=== PATIENT | male | born 1955 | race Caucasian/White ===

== ENCOUNTER 2022-04-09 07:47 | Observation (INO) | payer SELFPAY ==
[2022-04-09] MEDS ORDERED: Boostrix 0.5 ML (Tdap) VIAL (>/=7 yrs of age) ONE (08:33)
[2022-04-09 08:57] LABS: #Eosinphils 0.2 thou/uL (0.0-0.7); #Lymphocytes 0.7 thou/uL (1.20-3.40); #Monocytes 0.9 thou/uL (0.11-0.59); #Neutrophils 7.2 thou/uL (1.40-6.50); %Basophils 0.2 % (0.0-1.0); %Eosinophils 2.7 % (0.0-10.0); %Lymphocytes 7.6 % (21.0-51.0); %Monocytes 9.5 % (0.0-10.0); %Neutrophils 80.1 % (42.0-75.0); Mean Corpuscular HGB CONC 32.9 g/dL (32.0-36.0); Mean Corpuscular Hemoglobin 32.5 pg (27.0-31.0); Mean Corpuscular Volume 98.6 fl (78.0-98.0); Platelet Count 350 10x3/uL (130-400); Red Blood Cell (RBC) Count 4.02 mill/uL (4.70-6.10)
[2022-04-09 08:58] LABS: Prothrombin Time 13.2 sec (12.0-14.7)
[2022-04-09 09:04] LABS: ALT (SGPT) 83 U/L (8-55); AST (SGOT) 136 U/L (5-34); Albumin 3.2 g/dL (3.4-4.8); Alkaline Phosphatase 90 U/L (40-110); Anion Gap 16 mmol/L (10-20); BUN (Urea Nitrogen) 7 mg/dL (8.4-25.7); Calc. Creatinine Clearance 0 mL/min (70-130); Calcium 9.1 mg/dL (7.8-10.44); Carbon Dioxide 23 mmol/L (23-31); Chloride 103 mmol/L (98-107); Estimated GFR 98; Globulin 3.9 g/dL (2.4-3.5); Glucose 100 mg/dL (80-115); Potassium 3.6 mmol/L (3.5-5.1); Protein, Total 7.1 g/dL (5.8-8.1); Sodium 138 mmol/L (136-145)
[2022-04-09] MEDS ORDERED: Ampicillin/Sulbactam 3 GM in Sodium Chloride 0.9% 100 ML IVPB SCH (09:15)
[2022-04-09 09:21] LABS: SARS-CoV-2 NAA Rapid Test Not Detected (NotDetected)
[2022-04-09] MEDS ORDERED: VANCOMYCIN 1.25 GM/250 ML BAG 1.25 GM in Premix Bag 1 BAG IVPB SCH (11:30)
[2022-04-09] MEDS ORDERED: Iopamidol-370 76% 500 ML 1 ML ONE (12:48)
[2022-04-09] MEDS ORDERED: Acetaminophen 325 MG TAB PO PRN (13:45)
[2022-04-09] MEDS ORDERED: Lorazepam 2 MG/ML VIAL IM PRN (13:48)
[2022-04-09] MEDS ORDERED: Lorazepam 1 MG TAB PO PRN (13:48)
[2022-04-09] MEDS ORDERED: Ondansetron ODT 4 MG TAB PO PRN (13:48)
[2022-04-09] MEDS ORDERED: Electrolyte Replacement Protocol 1 EACH FS SCH (14:00)
[2022-04-09] MEDS ORDERED: Multivit, Therapeutic 1 TAB PO SCH (14:15)
[2022-04-09] MEDS ORDERED: Folic Acid 1 MG TAB PO SCH (14:15)
[2022-04-09 14:17] VITALS: BMI 20.3
[2022-04-09 14:22] LABS: Phosphorus 2.2 mg/dL (2.3-4.7)
[2022-04-09] MEDS ORDERED: Naproxen 500 MG TAB PO PRN (14:28)
[2022-04-09] MEDS ORDERED: FLU VACC QS2022-23(65YR UP)/PF 240 MCG/0.7 ML SYRINGE IM ONE (14:45)
[2022-04-09] MEDS: Lorazepam 1 MG TAB PO SCH ×2 (15:48→20:44)
[2022-04-09] MEDS: Thiamine HCl 200 MG/2 ML VIAL SLOW IVP SCH (15:48)
[2022-04-09 17:01] LABS: Amphetamine Not Detected (NotDetected); Barbiturates Screen Not Detected (NotDetected); Benzodiazepine Screen Not Detected (NotDetected); Cocaine Metabolite Screen Not Detected (NotDetected); Methadone Not Detected (NotDetected); Methamphetamine Not Detected (NotDetected); Opiate Screen Not Detected (NotDetected); Oxycodone Screen Not Detected (NotDetected); Phencyclidine (PCP) Not Detected (NotDetected); THC/Cannabinoid Screen Not Detected (NotDetected); Tricyclic Screen Not Detected (NotDetected)
[2022-04-09] MEDS ORDERED: traMADol HCl 50 MG TAB PO PRN (22:40)
[2022-04-09] MEDS: Vancomycin HCl 750 MG in Sodium Chloride 0.9% 250 ML 250 ML IVPB SCH (22:49)
[2022-04-10] MEDS: Lorazepam 1 MG TAB PO SCH ×4 (03:33→21:00)
[2022-04-10 08:25] LABS: #Eosinphils 0.3 thou/uL (0.0-0.7); #Lymphocytes 0.9 thou/uL (1.20-3.40); #Monocytes 0.8 thou/uL (0.11-0.59); #Neutrophils 7.9 thou/uL (1.40-6.50); %Basophils 0.2 % (0.0-1.0); %Eosinophils 2.8 % (0.0-10.0); %Lymphocytes 8.6 % (21.0-51.0); %Monocytes 8.3 % (0.0-10.0); %Neutrophils 80.1 % (42.0-75.0); Hemoglobin 12.5 g/dL (14.0-18.0); Mean Corpuscular HGB CONC 32.6 g/dL (32.0-36.0); Mean Platelet Volume 6.5 fL (7.4-10.4); Platelet Count 279 10x3/uL (130-400); RBC Distribution Width 11.1 % (11.5-14.5); White Blood Cell (WBC) Count 9.8 10x3/uL (4.8-10.8)
[2022-04-10 08:52] LABS: ALT (SGPT) 62 U/L (8-55); AST (SGOT) 47 U/L (5-34); Alkaline Phosphatase 78 U/L (40-110); Anion Gap 11 mmol/L (10-20); BUN (Urea Nitrogen) 10 mg/dL (8.4-25.7); Calc. Creatinine Clearance 81 mL/min (70-130); Calcium 8.4 mg/dL (7.8-10.44); Carbon Dioxide 22 mmol/L (23-31); Chloride 103 mmol/L (98-107); Estimated GFR 100; Globulin 3.5 g/dL (2.4-3.5); Glucose 78 mg/dL (80-115); Magnesium 2.1 mg/dL (1.6-2.6); Phosphorus 2.3 mg/dL (2.3-4.7); Potassium 3.4 mmol/L (3.5-5.1); Protein, Total 6.5 g/dL (5.8-8.1); Sodium 133 mmol/L (136-145)
[2022-04-10] MEDS: Folic Acid 1 MG TAB PO SCH (08:57)
[2022-04-10] MEDS: Multivit, Therapeutic 1 TAB PO SCH (08:58)
[2022-04-10] MEDS: Vancomycin HCl 750 MG in Sodium Chloride 0.9% 250 ML 250 ML IVPB SCH (09:36)
[2022-04-10] MEDS ORDERED: Lisinopril 10 MG TAB PO SCH (10:00)
[2022-04-10] MEDS ORDERED: Naproxen 500 MG TAB PO SCH (10:30)
[2022-04-10] MEDS ORDERED: Potassium Chloride 20 MEQ TAB PO SCH (11:30)
[2022-04-10 11:45] LABS: Syphilis Antibody Nonreactive (Nonreactive); Syphilis Antibody Index 0.24 S/CO (<1.00 Non-Reactive)
[2022-04-10] MEDS: traMADol HCl 50 MG TAB PO PRN ×2 (13:17→18:08)
[2022-04-10] MEDS: cefTRIAXone\\ROCEPHIN 2 GM in Sodium Chloride 0.9% 100 ML IVPB SCH (13:17)
[2022-04-10] MEDS ORDERED: Lorazepam 1 MG TAB PO PRN (13:48)
[2022-04-10] MEDS: Thiamine HCl 200 MG/2 ML VIAL SLOW IVP SCH (15:07)
[2022-04-10] MEDS ORDERED: Nicotine 21 MG PATCH TOP SCH (21:00)
[2022-04-10 21:40] LABS: Vancomycin, Trough 11.3 ug/mL
[2022-04-10] MEDS: Vancomycin 1 GM in Premix Bag 1 BAG IVPB SCH (22:53)
[2022-04-11] MEDS: Lorazepam 1 MG TAB PO SCH ×2 (01:17→09:59)
[2022-04-11] MEDS: traMADol HCl 50 MG TAB PO PRN ×2 (05:20→13:03)
[2022-04-11 06:58] LABS: #Eosinphils 0.3 thou/uL (0.0-0.7); #Lymphocytes 0.7 thou/uL (1.20-3.40); #Monocytes 0.5 thou/uL (0.11-0.59); #Neutrophils 5.3 thou/uL (1.40-6.50); %Basophils 0.2 % (0.0-1.0); %Eosinophils 3.9 % (0.0-10.0); %Lymphocytes 9.9 % (21.0-51.0); Hemoglobin 11.5 g/dL (14.0-18.0); Mean Corpuscular Hemoglobin 32.7 pg (27.0-31.0); Mean Corpuscular Volume 99.2 fl (78.0-98.0); Mean Platelet Volume 6.1 fL (7.4-10.4); Platelet Count 280 10x3/uL (130-400); Red Blood Cell (RBC) Count 3.51 mill/uL (4.70-6.10); White Blood Cell (WBC) Count 6.8 10x3/uL (4.8-10.8)
[2022-04-11 07:10] LABS: ALT (SGPT) 72 U/L (8-55); AST (SGOT) 65 U/L (5-34); Albumin 2.7 g/dL (3.4-4.8); Alkaline Phosphatase 67 U/L (40-110); Anion Gap 11 mmol/L (10-20); BUN (Urea Nitrogen) 8 mg/dL (8.4-25.7); Bilirubin, Total 0.5 mg/dL (0.2-1.2); Calc. Creatinine Clearance 98 mL/min (70-130); Calcium 8.4 mg/dL (7.8-10.44); Carbon Dioxide 24 mmol/L (23-31); Chloride 98 mmol/L (98-107); Estimated GFR 105; Globulin 3.2 g/dL (2.4-3.5); Glucose 105 mg/dL (80-115); Potassium 3.8 mmol/L (3.5-5.1); Protein, Total 5.9 g/dL (5.8-8.1); Sodium 129 mmol/L (136-145)
[2022-04-11 08:02] VITALS: TEMP 97.4
[2022-04-11] MEDS ORDERED: Lisinopril 10 MG TAB PO SCH (09:00)
[2022-04-11] MEDS: Folic Acid 1 MG TAB PO SCH (10:03)
[2022-04-11] MEDS: Vancomycin 1 GM in Premix Bag 1 BAG IVPB SCH (10:03)
[2022-04-11] MEDS: Multivit, Therapeutic 1 TAB PO SCH (10:03)
[2022-04-11] MEDS: cefTRIAXone\\ROCEPHIN 2 GM in Sodium Chloride 0.9% 100 ML IVPB SCH (13:03)
[2022-04-11] MEDS ORDERED: Lorazepam 1 MG TAB PO PRN (13:48)
[2022-04-11] MEDS ORDERED: Lorazepam 0.5 MG TAB PO SCH (14:00)
[2022-04-11] MEDS: Thiamine HCl 200 MG/2 ML VIAL SLOW IVP SCH (14:47)
[2022-04-11 19:17] VITALS: BP 126/76
[2022-04-12] MEDS ORDERED: Lorazepam 0.5 MG TAB PO PRN (13:48)
[2022-04-12] MEDS ORDERED: Thiamine 100 MG TAB PO SCH (14:00)
== END 2022-04-11 19:12 | disposition home or self-care (01) ==
LOC: ERS 07:47 → T4-B 11:53
PROVIDERS: ADMIT Student in an Organized Health Care Education/Training Program; ATTEND Student in an Organized Health Care Education/Training Program
DX: M27.8 Other specified diseases of jaws (principal); E87.1 Hypo-osmolality and hyponatremia; F17.220 Nicotine dependence, chewing tobacco, uncomplicated; F10.10 Alcohol abuse, uncomplicated; D17.1 Benign lipomatous neoplasm of skin and subcutaneous tissue of trunk; Z51.5 Encounter for palliative care; Z20.822 Contact with and (suspected) exposure to COVID-19
CPT/HCPCS: 36415; 70491; 80053; 80202; 80306; 83735; 83930; 83935; 84100; 84300; 85025; 85610; 85652; 85730; 86140; 86780; 86850; 86900; 86901; 87070; 87077; 87186; 87205; 90471; 90715; 93005; 96365; 96372; 96375; 96376; 97139; G0378; J0295; J0696; J1650; J3370; J3370-JW; J3411; J3490; J7050; Q9967; U0002

== ENCOUNTER 2022-04-22 07:25 | Outpatient (CLI) | payer OTHER ==
[2022-04-22] MEDS ORDERED: Iopamidol 370 76% 100 ML VIAL ONE (14:47)
== END 2022-04-22 07:26 | disposition home or self-care (01) ==
LOC: CT 07:25
PROVIDERS: ATTEND Physician Assistant Surgical
DX: C41.1 Malignant neoplasm of mandible (principal); C03.9 Malignant neoplasm of gum, unspecified; K40.20 Bilateral inguinal hernia, without obstruction or gangrene, not specified as recurrent
CPT/HCPCS: 71260; 75635; Q9967

== ENCOUNTER 2022-06-21 08:31 | Outpatient (CLI) | payer MEDICARE, OTHER ==
[2022-06-21] MEDS ORDERED: Iopamidol 370 76% 100 ML VIAL ONE (10:05)
== END 2022-06-21 08:32 | disposition home or self-care (01) ==
LOC: CT 08:31
PROVIDERS: ATTEND Radiology Radiation Oncology
DX: C41.1 Malignant neoplasm of mandible (principal); Z98.890 Other specified postprocedural states
CPT/HCPCS: 70491; 71260; Q9967

== ENCOUNTER 2022-09-17 13:38 | Emergency (ER) | payer MEDICARE ==
[~2022-09-17 13:38] MED LIST: Iopamidol-370 76% 500 ML MDV (1 ML CHARGE) ONE
[2022-09-17 14:27] LABS: Hematocrit 22.4 % (42.0-52.0); Hemoglobin 7.3 g/dL (14.0-18.0); Manual Diff?? YES; Mean Corpuscular HGB CONC 32.6 g/dL (32.0-36.0); Mean Corpuscular Hemoglobin 30.7 pg (27.0-31.0); Mean Corpuscular Volume 94.1 fl (78.0-98.0); Mean Platelet Volume 9.1 fL (7.4-10.4); Platelet Count 175 10x3/uL (130-400); RBC Distribution Width 18.4 % (11.5-14.5); Red Blood Cell (RBC) Count 2.38 mill/uL (4.70-6.10); White Blood Cell (WBC) Count 5.6 10x3/uL (4.8-10.8)
[2022-09-17 14:28] LABS: Delete Auto Diff?? YES
[2022-09-17] MEDS ORDERED: diphenhydrAMINE 50 MG/ML VIAL ONE (14:50)
[2022-09-17] MEDS ORDERED: methylPREDNISolone Sod Succ/PF 125 MG/2 ML VIAL ONE (14:50)
[2022-09-17] MEDS ORDERED: Famotidine/PF 20 mg/2ml Vial ONE (14:50)
[2022-09-17 14:52] LABS: ALT (SGPT) 15 U/L (8-55); AST (SGOT) 16 U/L (5-34); Albumin 3.7 g/dL (3.4-4.8); Alkaline Phosphatase 97 U/L (40-110); Anion Gap 13 mmol/L (10-20); BUN (Urea Nitrogen) 20 mg/dL (8.4-25.7); Bilirubin, Total 0.2 mg/dL (0.2-1.2); Calc. Creatinine Clearance 0 mL/min (70-130); Carbon Dioxide 31 mmol/L (23-31); Chloride 89 mmol/L (98-107); Estimated GFR 97; Globulin 3.4 g/dL (2.4-3.5); Glucose 102 mg/dL (80-115); Potassium 4.6 mmol/L (3.5-5.1); Protein, Total 7.1 g/dL (5.8-8.1); Sodium 128 mmol/L (136-145)
[2022-09-17 14:54] LABS: Anisocytosis SLIGHT = 6-15 cells HPF (0-5); Band 6 % (5-11); CellaVision Operator ID LAB.MJL; Eosinophils 1 % (0-10); Large Platelets 1.7 % (0-5); Lymphocytes 2 % (21-51); Monocytes 11 % (0-10); Neutrophil 80 % (42-75); Platelet Adequacy Comment Platelets Normal; Polychromasia SLIGHT = 2-3 cells HPF (0-2); Total Cell Count 117
[2022-09-17] MEDS ORDERED: Vancomycin 1 GM/200 ML (FROZEN) BAG ONE (16:30)
[2022-09-17] MEDS ORDERED: Piperacillin/Tazobactam 3.375 GM VIAL ONE (16:30)
== END 2022-09-17 17:14 | disposition home or self-care (01) ==
LOC: ERS 13:38
DX: L03.211 Cellulitis of face (principal); R13.10 Dysphagia, unspecified; E87.1 Hypo-osmolality and hyponatremia; Z87.891 Personal history of nicotine dependence
CPT/HCPCS: 36415; 70491; 80053; 83605; 85025; 85652; 86140; 87040; 96365; 96375; J1200; J2543; J2930; J3370-JW; Q9967; S0028

== ENCOUNTER 2022-09-22 13:41 | Outpatient (CLI) | payer MEDICARE | END 2022-09-22 13:42 | disposition home or self-care (01) | LOC: CT 13:41 | PROVIDERS: ATTEND Physician Assistant Surgical | DX: C03.1 Malignant neoplasm of lower gum (principal); R91.1 Solitary pulmonary nodule; L90.5 Scar conditions and fibrosis of skin | CPT/HCPCS: 71260 ==

== ENCOUNTER 2022-09-27 08:45 | Outpatient (CLI) | payer MEDICARE | END 2022-09-27 08:46 | disposition home or self-care (01) | LOC: PET 08:45 | PROVIDERS: ATTEND Physician Assistant Surgical | DX: C03.1 Malignant neoplasm of lower gum (principal); R91.1 Solitary pulmonary nodule | CPT/HCPCS: 78815; A9552 ==

== ENCOUNTER 2022-12-06 08:11 | Outpatient (CLI) | payer MEDICARE | END 2022-12-06 08:12 | disposition home or self-care (01) | LOC: CT 08:11 | PROVIDERS: ATTEND Otolaryngology | DX: C41.1 Malignant neoplasm of mandible (principal); Z92.3 Personal history of irradiation; Z85.819 Personal history of malignant neoplasm of unspecified site of lip, oral cavity, and pharynx; M95.2 Other acquired deformity of head; R93.0 Abnormal findings on diagnostic imaging of skull and head, not elsewhere classified | CPT/HCPCS: 70486; 74230 ==

== ENCOUNTER 2023-01-03 08:33 | Outpatient (CLI) | payer MEDICARE ==
[2023-01-03] MEDS ORDERED: Iopamidol 370 76% 100 ML VIAL ONE (13:46)
== END 2023-01-03 08:34 | disposition home or self-care (01) ==
LOC: CT 08:33
PROVIDERS: ATTEND Internal Medicine
DX: C80.1 Malignant (primary) neoplasm, unspecified (principal); R91.8 Other nonspecific abnormal finding of lung field; K76.9 Liver disease, unspecified; K40.20 Bilateral inguinal hernia, without obstruction or gangrene, not specified as recurrent; N32.89 Other specified disorders of bladder
CPT/HCPCS: 74177; Q9967

== ENCOUNTER 2023-01-30 16:18 | Inpatient (IN) | payer MEDICARE ==
[~2023-01-30 16:18] MED LIST changes: +Iopamidol 370 76% 100 ML VIAL ONE; -Iopamidol-370 76% 500 ML MDV (1 ML CHARGE) ONE
[2023-01-30 18:07] LABS: #Monocytes 1.4 thou/uL (0.11-0.59); #Neutrophils 9.2 thou/uL (1.40-6.50); %Basophils 0.1 % (0.0-1.0); %Eosinophils 0.1 % (0.0-10.0); %Lymphocytes 5.4 % (21.0-51.0); %Monocytes 12.6 % (0.0-10.0); %Neutrophils 80.7 % (42.0-75.0); Hematocrit 22.4 % (42.0-52.0); Hemoglobin 7.2 g/dL (14.0-18.0); Mean Corpuscular HGB CONC 32.1 g/dL (32.0-36.0); Mean Corpuscular Hemoglobin 28.9 pg (27.0-31.0); RBC Distribution Width 13.4 % (11.5-14.5); Red Blood Cell (RBC) Count 2.49 mill/uL (4.70-6.10); White Blood Cell (WBC) Count 11.4 10x3/uL (4.8-10.8)
[2023-01-30 18:11] LABS: Platelet Count 86 10x3/uL (130-400)
[2023-01-30 18:28] LABS: ALT (SGPT) 39 U/L (8-55); AST (SGOT) 30 U/L (5-34); Albumin 3.3 g/dL (3.4-4.8); Alkaline Phosphatase 118 U/L (40-110); Anion Gap 14 mmol/L (10-20); BUN (Urea Nitrogen) 16 mg/dL (8.4-25.7); Bilirubin, Total 0.4 mg/dL (0.2-1.2); Calc. Creatinine Clearance 0 mL/min (70-130); Calcium 9.6 mg/dL (7.8-10.44); Carbon Dioxide 27 mmol/L (23-31); Chloride 91 mmol/L (98-107); Estimated GFR 98; Globulin 3.9 g/dL (2.4-3.5); Glucose 107 mg/dL (80-115); Protein, Total 7.2 g/dL (5.8-8.1); Sodium 128 mmol/L (136-145)
[2023-01-30 18:33] LABS: Troponin I Less than 0.010 ng/mL (< 0.028)
[2023-01-30] MEDS ORDERED: Sodium Chloride 0.9% 100 ML ONE (21:06)
[2023-01-30] MEDS ORDERED: Cefepime 2 GM VIAL ONE (21:06)
[2023-01-30] MEDS ORDERED: Vancomycin HCl 750 MG in Sodium Chloride 0.9% 250 ML 250 ML IVPB SCH (21:45)
[2023-01-30] MEDS ORDERED: Clindamycin/D5W 900 MG in Premix 1 BAG IVPB SCH (21:45)
[2023-01-30] MEDS ORDERED: Ondansetron ODT 4 MG TAB PO PRN (22:59)
[2023-01-30] MEDS ORDERED: Acetaminophen 325 MG TAB PO PRN (22:59)
[2023-01-30] MEDS ORDERED: Acetaminophen 650 MG Suppository PR PRN (22:59)
[2023-01-30] MEDS ORDERED: Ondansetron PF 4 MG/2 ML Vial IVP PRN (22:59)
[2023-01-30] MEDS ORDERED: Sodium Chloride 0.9% 1,000 ML IV SCH (23:00)
[2023-01-30] MEDS ORDERED: Scopolamine 1 mg/72 hour Patch TD PRN (23:59)
[2023-01-31] MEDS: Dextrose 5%-Lactated Ringers 1,000 ML IV SCH ×2 (00:26→09:43)
[2023-01-31 00:38] VITALS: BMI 19.3
[2023-01-31 05:01] LABS: #Monocytes 1.4 thou/uL (0.11-0.59); #Neutrophils 9.2 thou/uL (1.40-6.50); %Basophils 0.2 % (0.0-1.0); %Lymphocytes 5.8 % (21.0-51.0); %Monocytes 12.2 % (0.0-10.0); %Neutrophils 80.6 % (42.0-75.0); Hematocrit 23.6 % (42.0-52.0); Hemoglobin 7.4 g/dL (14.0-18.0); Mean Corpuscular HGB CONC 31.4 g/dL (32.0-36.0); Mean Corpuscular Volume 92.5 fl (78.0-98.0); Mean Platelet Volume 9.9 fL (7.4-10.4); RBC Distribution Width 13.8 % (11.5-14.5); Red Blood Cell (RBC) Count 2.55 mill/uL (4.70-6.10); White Blood Cell (WBC) Count 11.4 10x3/uL (4.8-10.8)
[2023-01-31] MEDS: Clindamycin/D5W 900 MG in Premix 1 BAG IVPB SCH ×3 (05:16→22:14)
[2023-01-31 05:34] LABS: Anion Gap 11 mmol/L (10-20); BUN (Urea Nitrogen) 10 mg/dL (8.4-25.7); Calc. Creatinine Clearance 75 mL/min (70-130); Calcium 8.9 mg/dL (7.8-10.44); Carbon Dioxide 23 mmol/L (23-31); Chloride 97 mmol/L (98-107); Estimated GFR 99; Glucose 122 mg/dL (80-115); Potassium 3.9 mmol/L (3.5-5.1); Sodium 127 mmol/L (136-145)
[2023-01-31 06:10] LABS: Platelet Count 90 10x3/uL (130-400)
[2023-01-31] MEDS ORDERED: Vancomycin (BATCH) 1.5 GM in Premix 1 BAG IVPB SCH (09:00)
[2023-01-31] MEDS ORDERED: Cefepime 2 GM in Sodium Chloride 0.9% 100 ML IVPB SCH (09:00)
[2023-01-31] MEDS: Vancomycin HCl 750 MG in Sodium Chloride 0.9% 250 ML 250 ML IVPB SCH ×2 (09:42→22:13)
[2023-01-31] MEDS: Famotidine 20 MG TAB PO SCH ×2 (09:43→22:18)
[2023-01-31] MEDS: Famotidine/PF 20 mg/2ml Vial SLOW IVP SCH ×2 (09:43→22:12)
[2023-01-31] MEDS: Acetaminophen 650 MG/20.3 ML UDCUP PO PRN (10:49)
[2023-02-01] MEDS ORDERED: Piperacillin/Tazobactam 3.375 GM in Sodium Chloride 0.9% 100 ML IVPB SCH ×2 (01:00→01:15)
[2023-02-01] MEDS: Piperacillin/Tazobactam 3.375 GM in Sodium Chloride 0.9% 100 ML IVPB SCH ×3 (06:16→22:43)
[2023-02-01] MEDS ORDERED: Vancomycin HCl 750 MG in Sodium Chloride 0.9% 250 ML 250 ML IVPB SCH (07:45)
[2023-02-01] MEDS: Famotidine 20 MG TAB PO SCH ×3 (08:45→20:42)
[2023-02-01 08:50] LABS: Vancomycin, Trough 13.1 ug/mL
[2023-02-01] MEDS: Famotidine/PF 20 mg/2ml Vial SLOW IVP SCH ×2 (10:25→20:40)
[2023-02-01] MEDS: Vancomycin HCl 750 MG in Sodium Chloride 0.9% 250 ML 250 ML IVPB SCH ×2 (10:26→21:10)
[2023-02-01] MEDS ORDERED: Morphine 4 MG/ML VIAL SLOW IVP PRN (12:25)
[2023-02-01] MEDS ORDERED: HYDROcodone/Acetaminophen 5/325 mg Tablet PO PRN (12:25)
[2023-02-01] MEDS: Acetaminophen 650 MG/20.3 ML UDCUP PO PRN (16:53)
[2023-02-02] MEDS: Acetaminophen 650 MG/20.3 ML UDCUP PO PRN ×2 (02:26→17:06)
[2023-02-02 05:15] LABS: Anion Gap 11 mmol/L (10-20); BUN (Urea Nitrogen) 11 mg/dL (8.4-25.7); Calc. Creatinine Clearance 72 mL/min (70-130); Calcium 8.4 mg/dL (7.8-10.44); Carbon Dioxide 25 mmol/L (23-31); Chloride 97 mmol/L (98-107); Estimated GFR 98; Glucose 108 mg/dL (80-115); Potassium 3.7 mmol/L (3.5-5.1); Sodium 129 mmol/L (136-145)
[2023-02-02] MEDS: Piperacillin/Tazobactam 3.375 GM in Sodium Chloride 0.9% 100 ML IVPB SCH ×3 (05:26→18:37)
[2023-02-02 05:52] LABS: #Monocytes 1.3 thou/uL (0.11-0.59); #Neutrophils 8.5 thou/uL (1.40-6.50); %Basophils 0.1 % (0.0-1.0); %Eosinophils 0.3 % (0.0-10.0); %Lymphocytes 4.8 % (21.0-51.0); %Monocytes 12.4 % (0.0-10.0); %Neutrophils 81.3 % (42.0-75.0); Hematocrit 18.5 % (42.0-52.0); Mean Corpuscular HGB CONC 32.4 g/dL (32.0-36.0); Mean Corpuscular Hemoglobin 29.3 pg (27.0-31.0); Mean Corpuscular Volume 90.2 fl (78.0-98.0); Mean Platelet Volume 9.8 fL (7.4-10.4); Platelet Count 126 10x3/uL (130-400); RBC Distribution Width 13.9 % (11.5-14.5); Red Blood Cell (RBC) Count 2.05 mill/uL (4.70-6.10); White Blood Cell (WBC) Count 10.5 10x3/uL (4.8-10.8)
[2023-02-02] MEDS: Famotidine/PF 20 mg/2ml Vial SLOW IVP SCH ×2 (09:08→21:09)
[2023-02-02] MEDS ORDERED: hydrOXYzine 25 MG TAB PO PRN (09:18)
[2023-02-02] MEDS: Vancomycin HCl 750 MG in Sodium Chloride 0.9% 250 ML 250 ML IVPB SCH ×2 (09:23→22:50)
[2023-02-02] MEDS: Famotidine 20 MG TAB PO SCH ×2 (09:24→22:14)
[2023-02-02] MEDS ORDERED: diphenhydrAMINE 25 MG CAP PO SCH (18:00)
[2023-02-02] MEDS: diphenhydrAMINE 50 MG/ML VIAL IVP PRN (21:09)
[2023-02-02 23:04] LABS: Vancomycin, Trough 11.4 ug/mL
[2023-02-02] MEDS ORDERED: FLU VACC QS2023(65UP)/MF59C/PF 60 MCG/0.5 ML SYRINGE IM ONE (23:45)
[2023-02-03] MEDS: Acetaminophen 650 MG/20.3 ML UDCUP PO PRN ×3 (00:42→20:37)
[2023-02-03] MEDS: Piperacillin/Tazobactam 3.375 GM in Sodium Chloride 0.9% 100 ML IVPB SCH ×3 (01:57→18:00)
[2023-02-03 05:57] LABS: #Eosinphils 0.1 thou/uL (0.0-0.7); #Monocytes 1.5 thou/uL (0.11-0.59); #Neutrophils 8.6 thou/uL (1.40-6.50); %Basophils 0.3 % (0.0-1.0); %Eosinophils 0.5 % (0.0-10.0); %Lymphocytes 6.4 % (21.0-51.0); %Monocytes 13.9 % (0.0-10.0); %Neutrophils 77.9 % (42.0-75.0); Hematocrit 26.5 % (42.0-52.0); Hemoglobin 8.9 g/dL (14.0-18.0); Mean Corpuscular HGB CONC 33.6 g/dL (32.0-36.0); Mean Corpuscular Hemoglobin 29.7 pg (27.0-31.0); Mean Corpuscular Volume 88.3 fl (78.0-98.0); Mean Platelet Volume 9.9 fL (7.4-10.4); Platelet Count 138 10x3/uL (130-400); RBC Distribution Width 14.3 % (11.5-14.5); White Blood Cell (WBC) Count 11.1 10x3/uL (4.8-10.8)
[2023-02-03 06:27] LABS: Anion Gap 12 mmol/L (10-20); BUN (Urea Nitrogen) 13 mg/dL (8.4-25.7); CRP (Inflammatory) 12.63 mg/dL (= or < 0.5); Calc. Creatinine Clearance 77 mL/min (70-130); Calcium 8.7 mg/dL (7.8-10.44); Carbon Dioxide 25 mmol/L (23-31); Chloride 96 mmol/L (98-107); Estimated GFR 100; Glucose 104 mg/dL (80-115); Potassium 3.8 mmol/L (3.5-5.1); Sodium 129 mmol/L (136-145)
[2023-02-03] MEDS: Vancomycin HCl 750 MG in Sodium Chloride 0.9% 250 ML 250 ML IVPB SCH (09:27)
[2023-02-03] MEDS: Famotidine/PF 20 mg/2ml Vial SLOW IVP SCH ×2 (09:27→20:38)
[2023-02-03] MEDS: Famotidine 20 MG TAB PO SCH (09:30)
[2023-02-04] MEDS: Piperacillin/Tazobactam 3.375 GM in Sodium Chloride 0.9% 100 ML IVPB SCH ×3 (02:19→18:06)
[2023-02-04] MEDS: Acetaminophen 650 MG/20.3 ML UDCUP PO PRN ×2 (09:50→19:21)
[2023-02-04] MEDS: Famotidine/PF 20 mg/2ml Vial SLOW IVP SCH ×2 (09:56→20:59)
[2023-02-04 10:19] LABS: #Eosinphils 0.1 thou/uL (0.0-0.7); #Monocytes 1.4 thou/uL (0.11-0.59); #Neutrophils 8.5 thou/uL (1.40-6.50); %Basophils 0.2 % (0.0-1.0); %Eosinophils 0.5 % (0.0-10.0); %Lymphocytes 5.3 % (21.0-51.0); Hematocrit 26.7 % (42.0-52.0); Mean Corpuscular HGB CONC 33.7 g/dL (32.0-36.0); Mean Platelet Volume 9.8 fL (7.4-10.4); Platelet Count 180 10x3/uL (130-400); RBC Distribution Width 14.2 % (11.5-14.5); White Blood Cell (WBC) Count 10.6 10x3/uL (4.8-10.8)
[2023-02-04 10:39] LABS: Anion Gap 12 mmol/L (10-20); BUN (Urea Nitrogen) 10 mg/dL (8.4-25.7); Calc. Creatinine Clearance 77 mL/min (70-130); Carbon Dioxide 26 mmol/L (23-31); Chloride 94 mmol/L (98-107); Estimated GFR 100; Glucose 103 mg/dL (80-115); Sodium 128 mmol/L (136-145)
[2023-02-04] MEDS: Famotidine 20 MG TAB PO SCH ×2 (18:36→21:00)
[2023-02-05] MEDS: Piperacillin/Tazobactam 3.375 GM in Sodium Chloride 0.9% 100 ML IVPB SCH ×3 (02:19→18:13)
[2023-02-05 04:36] LABS: #Monocytes 1.3 thou/uL (0.11-0.59); #Neutrophils 6.9 thou/uL (1.40-6.50); %Basophils 0.1 % (0.0-1.0); %Eosinophils 0.4 % (0.0-10.0); %Lymphocytes 6.5 % (21.0-51.0); %Monocytes 14.6 % (0.0-10.0); %Neutrophils 77.5 % (42.0-75.0); Hematocrit 27.7 % (42.0-52.0); Hemoglobin 9.2 g/dL (14.0-18.0); Mean Corpuscular HGB CONC 33.2 g/dL (32.0-36.0); Mean Corpuscular Hemoglobin 30.1 pg (27.0-31.0); Mean Corpuscular Volume 90.5 fl (78.0-98.0); Mean Platelet Volume 9.8 fL (7.4-10.4); Platelet Count 208 10x3/uL (130-400); RBC Distribution Width 14.5 % (11.5-14.5); Red Blood Cell (RBC) Count 3.06 mill/uL (4.70-6.10); White Blood Cell (WBC) Count 8.9 10x3/uL (4.8-10.8)
[2023-02-05 05:17] LABS: Anion Gap 11 mmol/L (10-20); BUN (Urea Nitrogen) 11 mg/dL (8.4-25.7); Calc. Creatinine Clearance 71 mL/min (70-130); Calcium 9.2 mg/dL (7.8-10.44); Carbon Dioxide 27 mmol/L (23-31); Chloride 95 mmol/L (98-107); Estimated GFR 98; Glucose 128 mg/dL (80-115); Potassium 4.1 mmol/L (3.5-5.1); Sodium 129 mmol/L (136-145)
[2023-02-05] MEDS: diphenhydrAMINE 50 MG/ML VIAL IVP PRN (09:16)
[2023-02-05] MEDS: Famotidine/PF 20 mg/2ml Vial SLOW IVP SCH ×2 (09:16→20:46)
[2023-02-05] MEDS: Famotidine 20 MG TAB PO SCH ×2 (09:48→20:46)
[2023-02-05] MEDS: Acetaminophen 650 MG/20.3 ML UDCUP PO PRN ×2 (10:53→19:20)
[2023-02-06] MEDS: Piperacillin/Tazobactam 3.375 GM in Sodium Chloride 0.9% 100 ML IVPB SCH ×3 (02:27→17:55)
[2023-02-06] MEDS: Acetaminophen 650 MG/20.3 ML UDCUP PO PRN (09:18)
[2023-02-06] MEDS: Famotidine/PF 20 mg/2ml Vial SLOW IVP SCH ×2 (09:19→21:52)
[2023-02-06] MEDS: Famotidine 20 MG TAB PO SCH ×2 (15:41→21:52)
[2023-02-07] MEDS: Piperacillin/Tazobactam 3.375 GM in Sodium Chloride 0.9% 100 ML IVPB SCH ×3 (00:57→17:56)
[2023-02-07] MEDS: Famotidine/PF 20 mg/2ml Vial SLOW IVP SCH ×2 (10:28→20:48)
[2023-02-07] MEDS: Acetaminophen 650 MG/20.3 ML UDCUP PO PRN ×2 (10:29→20:53)
[2023-02-07] MEDS: Famotidine 20 MG TAB PO SCH ×2 (19:44→21:30)
[2023-02-08] MEDS: Piperacillin/Tazobactam 3.375 GM in Sodium Chloride 0.9% 100 ML IVPB SCH ×3 (01:50→17:31)
[2023-02-08 05:11] LABS: ALT (SGPT) 37 U/L (8-55); AST (SGOT) 19 U/L (5-34); Albumin 3.2 g/dL (3.4-4.8); Alkaline Phosphatase 106 U/L (40-110); Bilirubin, Direct 0.1 mg/dL (0.1-0.3); Bilirubin, Total 0.2 mg/dL (0.2-1.2); CRP (Inflammatory) 5.24 mg/dL (= or < 0.5); Protein, Total 6.9 g/dL (5.8-8.1)
[2023-02-08] MEDS: Acetaminophen 650 MG/20.3 ML UDCUP PO PRN ×2 (08:56→21:41)
[2023-02-08] MEDS: Famotidine/PF 20 mg/2ml Vial SLOW IVP SCH ×2 (09:48→21:41)
[2023-02-08] MEDS: Famotidine 20 MG TAB PO SCH ×2 (09:50→21:41)
[2023-02-09] MEDS: Piperacillin/Tazobactam 3.375 GM in Sodium Chloride 0.9% 100 ML IVPB SCH ×3 (01:30→18:00)
[2023-02-09] MEDS: Famotidine/PF 20 mg/2ml Vial SLOW IVP SCH ×2 (09:09→20:25)
[2023-02-09] MEDS: Acetaminophen 650 MG/20.3 ML UDCUP PO PRN ×2 (09:32→22:22)
[2023-02-09] MEDS: Famotidine 20 MG TAB PO SCH ×2 (19:42→20:15)
[2023-02-10] MEDS: Piperacillin/Tazobactam 3.375 GM in Sodium Chloride 0.9% 100 ML IVPB SCH ×3 (03:40→17:52)
[2023-02-10] MEDS: Acetaminophen 650 MG/20.3 ML UDCUP PO PRN ×3 (10:08→23:12)
[2023-02-10] MEDS: Famotidine/PF 20 mg/2ml Vial SLOW IVP SCH ×2 (10:13→21:32)
[2023-02-10] MEDS: Famotidine 20 MG TAB PO SCH ×2 (10:55→20:21)
[2023-02-11] MEDS: Piperacillin/Tazobactam 3.375 GM in Sodium Chloride 0.9% 100 ML IVPB SCH ×3 (04:10→18:42)
[2023-02-11] MEDS: Famotidine/PF 20 mg/2ml Vial SLOW IVP SCH ×2 (08:28→20:00)
[2023-02-11] MEDS: Acetaminophen 650 MG/20.3 ML UDCUP PO PRN ×2 (08:28→20:00)
[2023-02-11 08:56] LABS: #Monocytes 0.8 thou/uL (0.11-0.59); #Neutrophils 4.1 thou/uL (1.40-6.50); %Basophils 0.3 % (0.0-1.0); %Eosinophils 0.5 % (0.0-10.0); %Lymphocytes 13.5 % (21.0-51.0); %Monocytes 13.3 % (0.0-10.0); %Neutrophils 70.2 % (42.0-75.0); Hematocrit 29.7 % (42.0-52.0); Hemoglobin 9.7 g/dL (14.0-18.0); Mean Corpuscular HGB CONC 32.7 g/dL (32.0-36.0); Mean Corpuscular Hemoglobin 29.9 pg (27.0-31.0); Mean Corpuscular Volume 91.7 fl (78.0-98.0); Mean Platelet Volume 8.8 fL (7.4-10.4); Platelet Count 362 10x3/uL (130-400); RBC Distribution Width 14.7 % (11.5-14.5); Red Blood Cell (RBC) Count 3.24 mill/uL (4.70-6.10); White Blood Cell (WBC) Count 5.8 10x3/uL (4.8-10.8)
[2023-02-11] MEDS: Famotidine 20 MG TAB PO SCH (09:05)
[2023-02-11 09:49] LABS: Anion Gap 13 mmol/L (10-20); BUN (Urea Nitrogen) 14 mg/dL (8.4-25.7); Calc. Creatinine Clearance 73 mL/min (70-130); Calcium 9.7 mg/dL (7.8-10.44); Carbon Dioxide 26 mmol/L (23-31); Chloride 96 mmol/L (98-107); Estimated GFR 99; Glucose 102 mg/dL (80-115); Potassium 4.1 mmol/L (3.5-5.1); Sodium 131 mmol/L (136-145)
[2023-02-12] MEDS: Piperacillin/Tazobactam 3.375 GM in Sodium Chloride 0.9% 100 ML IVPB SCH ×2 (01:11→08:49)
[2023-02-12] MEDS: Famotidine 20 MG TAB PO SCH ×2 (01:14→08:35)
[2023-02-12 07:30] VITALS: BP 157/81; TEMP 97.5
[2023-02-12 07:34] LABS: #Monocytes 0.9 thou/uL (0.11-0.59); #Neutrophils 4.6 thou/uL (1.40-6.50); %Basophils 0.4 % (0.0-1.0); %Eosinophils 0.6 % (0.0-10.0); %Monocytes 12.7 % (0.0-10.0); %Neutrophils 68.5 % (42.0-75.0); Hematocrit 34.7 % (42.0-52.0); Hemoglobin 11.2 g/dL (14.0-18.0); Mean Corpuscular HGB CONC 32.3 g/dL (32.0-36.0); Mean Corpuscular Hemoglobin 29.7 pg (27.0-31.0); Mean Platelet Volume 8.7 fL (7.4-10.4); Platelet Count 411 10x3/uL (130-400); RBC Distribution Width 14.7 % (11.5-14.5); Red Blood Cell (RBC) Count 3.77 mill/uL (4.70-6.10); White Blood Cell (WBC) Count 6.8 10x3/uL (4.8-10.8)
[2023-02-12 08:00] LABS: Anion Gap 14 mmol/L (10-20); BUN (Urea Nitrogen) 15 mg/dL (8.4-25.7); Calc. Creatinine Clearance 66 mL/min (70-130); Calcium 10.1 mg/dL (7.8-10.44); Carbon Dioxide 26 mmol/L (23-31); Chloride 95 mmol/L (98-107); Estimated GFR 96; Glucose 100 mg/dL (80-115); Potassium 4.3 mmol/L (3.5-5.1); Sodium 131 mmol/L (136-145)
[2023-02-12] MEDS: Famotidine/PF 20 mg/2ml Vial SLOW IVP SCH (08:50)
[2023-02-12] MEDS: Acetaminophen 650 MG/20.3 ML UDCUP PO PRN (08:50)
== END 2023-02-12 11:33 | disposition home health service (06) | DRG 862 ==
LOC: ERS 16:18 → 2NO 21:59 → MSONC 01-31 16:14
PROVIDERS: ADMIT Student in an Organized Health Care Education/Training Program; ATTEND Internal Medicine
PROC: 0D20XUZ Change Feeding Device in Upper Intestinal Tract, External Approach (ICD-10-PCS; principal; 2023-01-31)
PROC: 30233N1 Transfusion of Nonautologous Red Blood Cells into Peripheral Vein, Percutaneous Approach (ICD-10-PCS; 2023-02-02)
DX: T81.49XA Infection following a procedure, other surgical site, initial encounter (principal); A41.50 Gram-negative sepsis, unspecified; T80.218A Other infection due to central venous catheter, initial encounter; L03.211 Cellulitis of face; E22.2 Syndrome of inappropriate secretion of antidiuretic hormone; D84.9 Immunodeficiency, unspecified; E44.0 Moderate protein-calorie malnutrition; Z68.1 Body mass index [BMI] 19.9 or less, adult; I96 Gangrene, not elsewhere classified; R91.1 Solitary pulmonary nodule; I10 Essential (primary) hypertension; E86.0 Dehydration; K94.29 Other complications of gastrostomy; C76.0 Malignant neoplasm of head, face and neck; D63.8 Anemia in other chronic diseases classified elsewhere; Y83.8 Other surgical procedures as the cause of abnormal reaction of the patient, or of later complication, without mention of misadventure at the time of the procedure; Z98.890 Other specified postprocedural states; Z79.51 Long term (current) use of inhaled steroids; Z87.891 Personal history of nicotine dependence; Z79.899 Other long term (current) drug therapy; Z79.82 Long term (current) use of aspirin
CPT/HCPCS: 36415; 36430; 70491; 71045; 74018; 80048; 80053; 80076; 80202; 83605; 84443; 84484; 85025; 86140; 86850; 86900; 86901; 87040; 87077; 87081; 87149; 87186; 96361; 96365; 96367; 96375; 97139; J0692; J1200; J1642; J2543; J3370; J3490; J7050; P9016; Q9967; S0028

== ENCOUNTER 2023-03-15 11:02 | Day surgery (SDC) | payer MEDICARE ==
[2023-03-15 17:47] VITALS: BP 132/62; TEMP 97.5
== END 2023-03-15 17:48 | disposition home or self-care (01) ==
LOC: ONC/OP 11:02
PROVIDERS: ATTEND Internal Medicine
DX: D64.9 Anemia, unspecified (principal); Z79.899 Other long term (current) drug therapy
CPT/HCPCS: 36430; 80053; 84439; 84443; 86850; 86900; 86901; 86920; P9016; J1642

== ENCOUNTER 2023-03-22 08:05 | Outpatient (CLI) | payer MEDICARE ==
[2023-03-22] MEDS ORDERED: Iopamidol 370 76% 100 ML VIAL ONE (11:07)
== END 2023-03-22 08:06 | disposition home or self-care (01) ==
LOC: CT 08:05
PROVIDERS: ATTEND Internal Medicine
DX: C76.0 Malignant neoplasm of head, face and neck (principal); R91.8 Other nonspecific abnormal finding of lung field; R59.0 Localized enlarged lymph nodes
CPT/HCPCS: 70491; 71260; 74177; Q9967

== ENCOUNTER 2023-03-30 14:51 | Emergency (ER) | payer MEDICARE ==
[~2023-03-30 14:51] MED LIST changes: -Iopamidol 370 76% 100 ML VIAL ONE; +Iopamidol-370 76% 500 ML MDV (1 ML CHARGE) ONE
[2023-03-30] MEDS ORDERED: Cefepime 2 GM VIAL ONE (17:12)
[2023-03-30] MEDS ORDERED: Vancomycin 1 GM/200 ML (FROZEN) BAG ONE (17:12)
[2023-03-30] MEDS ORDERED: Sodium Chloride 0.9% 100 ML ONE (17:12)
[2023-03-30 17:15] LABS: %Basophils 0.2 % (0.0-1.0); %Eosinophils 0.1 % (0.0-10.0); %Lymphocytes 2.1 % (21.0-51.0); %Monocytes 5.1 % (0.0-10.0); %Neutrophils 91.8 % (42.0-75.0); Hematocrit 31.6 % (42.0-52.0); Hemoglobin 10.2 g/dL (14.0-18.0); Mean Corpuscular HGB CONC 32.3 g/dL (32.0-36.0); Mean Corpuscular Hemoglobin 31.5 pg (27.0-31.0); Mean Corpuscular Volume 97.5 fl (78.0-98.0); Mean Platelet Volume 9.2 fL (7.4-10.4); Platelet Count 389 10x3/uL (130-400); RBC Distribution Width 15.3 % (11.5-14.5); Red Blood Cell (RBC) Count 3.24 mill/uL (4.70-6.10); White Blood Cell (WBC) Count 19.6 10x3/uL (4.8-10.8)
[2023-03-30 17:46] LABS: ALT (SGPT) 15 U/L (8-55); AST (SGOT) 14 U/L (5-34); Albumin 3.6 g/dL (3.4-4.8); Alkaline Phosphatase 85 U/L (40-110); Anion Gap 9 mmol/L (10-20); BUN (Urea Nitrogen) 28 mg/dL (8.4-25.7); Bilirubin, Total 0.2 mg/dL (0.2-1.2); Calc. Creatinine Clearance 0 mL/min (70-130); Calcium 11.6 mg/dL (7.8-10.44); Carbon Dioxide 33 mmol/L (23-31); Chloride 96 mmol/L (98-107); Estimated GFR 83; Globulin 3.5 g/dL (2.4-3.5); Glucose 107 mg/dL (80-115); Potassium 4.3 mmol/L (3.5-5.1); Protein, Total 7.1 g/dL (5.8-8.1); Sodium 134 mmol/L (136-145)
[2023-03-30 19:00] LABS: Bacteria/HPF None Seen HPF (None Seen); Bilirubin Negative (Negative); Blood, Urine Negative (Negative); CAUTI Indications for Culture Dysuria,urgency,freq; Clarity Clear (Clear); Glucose, Urine (Dipstick) Normal (Negative); Ketone, Urine Negative (Negative); Leukocyte Negative Leu/uL (Negative); Nitrite Negative (Negative); Protein, Urine (Dipstick) Negative (Neg-Trace); RBC/HPF 0-3 HPF (0-3); Squamous Epithelial None Seen HPF (0-3); Urobilinogen Normal mg/dL (Less than 2); WBC/HPF 0-3 HPF (0-3); pH, Urine 6.5 (5.0-9.0)
[2023-03-30 19:01] LABS: Urine Culture Reflex No No
== END 2023-03-30 23:44 | disposition short-term general hospital (02) ==
LOC: ERS 14:51
DX: A41.9 Sepsis, unspecified organism (principal); L03.211 Cellulitis of face; R22.1 Localized swelling, mass and lump, neck; Z87.891 Personal history of nicotine dependence
CPT/HCPCS: 70491; 71045; 80053; 81001; 83605; 85025; 87040; J3370; 36415; 96365; 96366; 96367; J0692; J3490; Q9967

== ENCOUNTER 2023-04-14 11:19 | Inpatient (IN) | payer MEDICARE ==
[2023-04-14 12:07] LABS: #Monocytes 1.1 thou/uL (0.11-0.59); #Neutrophils 15.8 thou/uL (1.40-6.50); %Basophils 0.2 % (0.0-1.0); %Monocytes 6.2 % (0.0-10.0); %Neutrophils 89.8 % (42.0-75.0); Hematocrit 23.6 % (42.0-52.0); Hemoglobin 7.9 g/dL (14.0-18.0); Mean Corpuscular HGB CONC 33.5 g/dL (32.0-36.0); Mean Corpuscular Hemoglobin 32.8 pg (27.0-31.0); Mean Corpuscular Volume 97.9 fl (78.0-98.0); Mean Platelet Volume 10.4 fL (7.4-10.4); RBC Distribution Width 14.6 % (11.5-14.5); Red Blood Cell (RBC) Count 2.41 mill/uL (4.70-6.10); White Blood Cell (WBC) Count 17.6 10x3/uL (4.8-10.8)
[2023-04-14 12:11] LABS: Platelet Count 60 10x3/uL (130-400)
[2023-04-14 12:23] LABS: ALT (SGPT) 14 U/L (8-55); AST (SGOT) 15 U/L (5-34); Albumin 3.5 g/dL (3.4-4.8); Alkaline Phosphatase 133 U/L (40-110); Anion Gap 15 mmol/L (10-20); BUN (Urea Nitrogen) 26 mg/dL (8.4-25.7); Bilirubin, Total 0.6 mg/dL (0.2-1.2); CK (CPK) 24 U/L (30-200); Calc. Creatinine Clearance 0 mL/min (70-130); Calcium 12.4 mg/dL (7.8-10.44); Carbon Dioxide 28 mmol/L (23-31); Chloride 91 mmol/L (98-107); Estimated GFR 63; Globulin 3.7 g/dL (2.4-3.5); Glucose 105 mg/dL (80-115); Magnesium 2.6 mg/dL (1.6-2.6); Potassium 3.8 mmol/L (3.5-5.1); Protein, Total 7.2 g/dL (5.8-8.1); Sodium 130 mmol/L (136-145)
[2023-04-14 12:23] LABS: INR-International Normal Ratio 1.1; Prothrombin Time 14.5 sec (12.0-14.7)
[2023-04-14 12:24] LABS: PTT 40.5 sec (22.9-36.1)
[2023-04-14] MEDS ORDERED: Cefepime 2 GM VIAL ONE (12:49)
[2023-04-14] MEDS ORDERED: Vancomycin 1 GM/200 ML (FROZEN) BAG ONE (12:49)
[2023-04-14] MEDS ORDERED: Sodium Chloride 0.9% 100 ML ONE (12:49)
[2023-04-14 14:28] LABS: Bacteria/HPF None Seen HPF (None Seen); Bilirubin Negative (Negative); Blood, Urine Negative (Negative); CAUTI Indications for Culture Immunosuppressed; Clarity Clear (Clear); Glucose, Urine (Dipstick) Normal (Negative); Ketone, Urine Negative (Negative); Leukocyte Negative Leu/uL (Negative); Nitrite Negative (Negative); Protein, Urine (Dipstick) Negative (Neg-Trace); RBC/HPF 0-3 HPF (0-3); Specific Gravity, Urine 1.013 (1.002-1.036); Squamous Epithelial 0-3 HPF (0-3); Urobilinogen Normal mg/dL (Less than 2); pH, Urine 5.5 (5.0-9.0)
[2023-04-14 14:43] LABS: Urine Culture Reflex Yes Yes
[2023-04-14 15:02] LABS: Influenza A by NAA Not Detected (NotDetected); Influenza B by NAA Not Detected (NotDetected); SARS-CoV-2 NAA Rapid Test Not Detected (NotDetected)
[2023-04-14] MEDS ORDERED: ISOVUE-370 76% MDV (1 ML CHARGE) ONE (15:33)
[2023-04-14] MEDS ORDERED: Senokot S 8.6-50 MG TAB PO PRN (16:01)
[2023-04-14] MEDS ORDERED: Ondansetron ODT 4 MG TAB PO PRN (16:01)
[2023-04-14] MEDS ORDERED: Acetaminophen 650 MG Suppository PR PRN (16:01)
[2023-04-14] MEDS ORDERED: Ondansetron PF 4 MG/2 ML Vial IVP PRN (16:01)
[2023-04-14] MEDS ORDERED: HYDROcodone/Acetaminophen 5/325 mg Tablet PO PRN (16:01)
[2023-04-14] MEDS ORDERED: Piperacillin/Tazobactam 3.375 GM in Sodium Chloride 0.9% 100 ML IVPB SCH (16:15)
[2023-04-14] MEDS: Piperacillin/Tazobactam 3.375 GM in Sodium Chloride 0.9% 100 ML IVPB SCH ×2 (19:08→23:25)
[2023-04-14] MEDS: Sodium Chloride 0.9% 1,000 ML IV SCH (19:09)
[2023-04-14 20:18] VITALS: BMI 16.7
[2023-04-14] MEDS ORDERED: Vancomycin 1 GM in Sodium Chloride 0.9% 250 ML 250 ML IVPB SCH (21:00)
[2023-04-15 04:56] LABS: #Monocytes 0.8 thou/uL (0.11-0.59); #Neutrophils 14.8 thou/uL (1.40-6.50); %Basophils 0.1 % (0.0-1.0); %Eosinophils 0.1 % (0.0-10.0); %Lymphocytes 2.1 % (21.0-51.0); %Monocytes 5.1 % (0.0-10.0); Hematocrit 21.8 % (42.0-52.0); Hemoglobin 7.4 g/dL (14.0-18.0); Mean Corpuscular HGB CONC 33.9 g/dL (32.0-36.0); Mean Corpuscular Hemoglobin 32.9 pg (27.0-31.0); Mean Corpuscular Volume 96.9 fl (78.0-98.0); RBC Distribution Width 14.8 % (11.5-14.5); Red Blood Cell (RBC) Count 2.25 mill/uL (4.70-6.10); White Blood Cell (WBC) Count 16.3 10x3/uL (4.8-10.8)
[2023-04-15 04:58] LABS: Platelet Count 50 10x3/uL (130-400)
[2023-04-15 05:30] LABS: Anion Gap 12 mmol/L (10-20); BUN (Urea Nitrogen) 21 mg/dL (8.4-25.7); Calc. Creatinine Clearance 40 mL/min (70-130); Calcium 11.6 mg/dL (7.8-10.44); Carbon Dioxide 28 mmol/L (23-31); Chloride 96 mmol/L (98-107); Estimated GFR 68; Glucose 112 mg/dL (80-115); Potassium 3.5 mmol/L (3.5-5.1); Sodium 132 mmol/L (136-145)
[2023-04-15] MEDS: Enoxaparin 30 MG (0.3 mL) SYRINGE SC SCH (08:41)
[2023-04-15] MEDS ORDERED: Sodium Hypochlorite 0.25% Solution 480 ML BOT TOP PRN (11:49)
[2023-04-15] MEDS: Vancomycin HCl 750 MG in Sodium Chloride 0.9% 250 ML 250 ML IVPB SCH (13:45)
[2023-04-15] MEDS: Sodium Chloride 0.9% 1,000 ML IV SCH (20:19)
[2023-04-16] MEDS: Ipratropium/Albuterol 3 ML NEB NEB PRN (00:06)
[2023-04-16 04:48] LABS: Hematocrit 20.2 % (42.0-52.0); Hemoglobin 6.6 g/dL (14.0-18.0); Manual Diff?? YES; Mean Corpuscular HGB CONC 32.7 g/dL (32.0-36.0); Mean Corpuscular Hemoglobin 31.7 pg (27.0-31.0); Mean Corpuscular Volume 97.1 fl (78.0-98.0); Mean Platelet Volume 10.4 fL (7.4-10.4); RBC Distribution Width 14.9 % (11.5-14.5); Red Blood Cell (RBC) Count 2.08 mill/uL (4.70-6.10); White Blood Cell (WBC) Count 14.3 10x3/uL (4.8-10.8)
[2023-04-16 04:58] LABS: Delete Auto Diff?? YES; Platelet Count 38 10x3/uL (130-400)
[2023-04-16 05:42] LABS: Anisocytosis SLIGHT = 6-15 cells HPF (0-5); Band 3 % (5-11); CellaVision Operator ID lab.sh2; Macrocytosis SLIGHT = 6-15 cells HPF (0-5); Monocytes 3 % (0-10); Neutrophil 94 % (42-75); Platelet Adequacy Comment Significant decrease; Polychromasia SLIGHT = 2-3 cells HPF (0-2); Total Cell Count 101; Toxic Granulation SLIGHT
[2023-04-16 05:53] LABS: Anion Gap 10 mmol/L (10-20); BUN (Urea Nitrogen) 14 mg/dL (8.4-25.7); Calc. Creatinine Clearance 54 mL/min (70-130); Calcium 10.5 mg/dL (7.8-10.44); Carbon Dioxide 28 mmol/L (23-31); Chloride 99 mmol/L (98-107); Estimated GFR 94; Glucose 112 mg/dL (80-115); Potassium 3.2 mmol/L (3.5-5.1); Sodium 134 mmol/L (136-145)
[2023-04-16] MEDS: Potassium Bicarbonate/Cit Ac 20 MEQ TAB PER TUBE SCH (10:39)
[2023-04-16 13:28] LABS: Vancomycin, Trough 7.6 ug/mL
[2023-04-16] MEDS: Vancomycin HCl 500 MG in Sodium Chloride 0.9% 100 ML IVPB SCH (16:20)
[2023-04-16 17:35] LABS: #Monocytes 0.7 thou/uL (0.11-0.59); #Neutrophils 12.5 thou/uL (1.40-6.50); %Basophils 0.2 % (0.0-1.0); %Eosinophils 0.1 % (0.0-10.0); %Lymphocytes 2.6 % (21.0-51.0); %Monocytes 5.4 % (0.0-10.0); %Neutrophils 90.7 % (42.0-75.0); Mean Corpuscular HGB CONC 34.2 g/dL (32.0-36.0); Mean Corpuscular Hemoglobin 32.1 pg (27.0-31.0); Mean Platelet Volume 9.8 fL (7.4-10.4); RBC Distribution Width 14.8 % (11.5-14.5); Red Blood Cell (RBC) Count 3.43 mill/uL (4.70-6.10); White Blood Cell (WBC) Count 13.8 10x3/uL (4.8-10.8)
[2023-04-16 17:40] LABS: Hematocrit 32.2 % (42.0-52.0); Mean Corpuscular Volume 93.9 fl (78.0-98.0); Platelet Count 31 10x3/uL (130-400)
[2023-04-16 17:48] LABS: Potassium 3.6 mmol/L (3.5-5.1)
[2023-04-16] MEDS: Piperacillin/Tazobactam 3.375 GM in Sodium Chloride 0.9% 100 ML IVPB SCH (17:57)
[2023-04-16] MEDS ORDERED: Meropenem 1 GM in Sodium Chloride 0.9% 100 ML IVPB SCH (18:33)
[2023-04-16] MEDS: Gabapentin 300 MG CAP PER TUBE SCH (20:31)
[2023-04-16] MEDS: Acetaminophen 325 MG TAB PO PRN (20:31)
[2023-04-16] MEDS: Meropenem 1 GM in Sodium Chloride 0.9% 100 ML IVPB SCH (20:33)
[2023-04-17 04:32] LABS: Hematocrit 28.9 % (42.0-52.0); Manual Diff?? YES; Mean Corpuscular HGB CONC 34.6 g/dL (32.0-36.0); Mean Corpuscular Hemoglobin 32.1 pg (27.0-31.0); Mean Corpuscular Volume 92.6 fl (78.0-98.0); Mean Platelet Volume 9.5 fL (7.4-10.4); RBC Distribution Width 15.1 % (11.5-14.5); Red Blood Cell (RBC) Count 3.12 mill/uL (4.70-6.10); White Blood Cell (WBC) Count 12.7 10x3/uL (4.8-10.8)
[2023-04-17 04:37] LABS: Delete Auto Diff?? YES; Platelet Count 30 10x3/uL (130-400)
[2023-04-17 05:03] LABS: Anion Gap 11 mmol/L (10-20); BUN (Urea Nitrogen) 15 mg/dL (8.4-25.7); Calc. Creatinine Clearance 65 mL/min (70-130); Calcium 10.3 mg/dL (7.8-10.44); Carbon Dioxide 28 mmol/L (23-31); Chloride 98 mmol/L (98-107); Estimated GFR 100; Glucose 104 mg/dL (80-115); Magnesium 1.8 mg/dL (1.6-2.6); Potassium 3.4 mmol/L (3.5-5.1); Sodium 134 mmol/L (136-145)
[2023-04-17 05:19] LABS: Anisocytosis SLIGHT = 6-15 cells HPF (0-5); Band 24 % (5-11); CellaVision Operator ID LAB.CLH1; Hypochromia SLIGHT = 6-15 cells HPF (0-5); Monocytes 5 % (0-10); Neutrophil 72 % (42-75); Platelet Adequacy Comment Platelets Decreased; Polychromasia SLIGHT = 2-3 cells HPF (0-2); Total Cell Count 102
[2023-04-17] MEDS: Meropenem 1 GM in Sodium Chloride 0.9% 100 ML IVPB SCH (05:58)
[2023-04-17] MEDS: Potassium Bicarbonate/Cit Ac 20 MEQ TAB PER TUBE SCH (09:27)
[2023-04-17] MEDS: HYDROcodone/Acetaminophen 5/325 mg Tablet PO PRN (10:38)
[2023-04-17] MEDS: Furosemide 20 MG (2 mL) VIAL SLOW IVP SCH (12:44)
[2023-04-17] MEDS: methylPREDNISolone Sod Succ/PF 125 MG/2 ML VIAL IVP SCH (12:45)
[2023-04-18 06:20] LABS: #Monocytes 0.3 thou/uL (0.11-0.59); #Neutrophils 10.2 thou/uL (1.40-6.50); %Basophils 0.1 % (0.0-1.0); %Lymphocytes 2.5 % (21.0-51.0); %Monocytes 2.9 % (0.0-10.0); %Neutrophils 93.8 % (42.0-75.0); Hematocrit 31.9 % (42.0-52.0); Hemoglobin 10.7 g/dL (14.0-18.0); Mean Corpuscular HGB CONC 33.5 g/dL (32.0-36.0); Mean Corpuscular Hemoglobin 31.8 pg (27.0-31.0); Mean Corpuscular Volume 94.7 fl (78.0-98.0); Mean Platelet Volume 10.6 fL (7.4-10.4); RBC Distribution Width 14.9 % (11.5-14.5); Red Blood Cell (RBC) Count 3.37 mill/uL (4.70-6.10); White Blood Cell (WBC) Count 10.9 10x3/uL (4.8-10.8)
[2023-04-18 06:34] LABS: Platelet Count 35 10x3/uL (130-400)
[2023-04-18 06:35] LABS: Anion Gap 11 mmol/L (10-20); BUN (Urea Nitrogen) 23 mg/dL (8.4-25.7); Calc. Creatinine Clearance 62 mL/min (70-130); Calcium 11.1 mg/dL (7.8-10.44); Carbon Dioxide 31 mmol/L (23-31); Chloride 100 mmol/L (98-107); Estimated GFR 98; Glucose 137 mg/dL (80-115); Potassium 3.9 mmol/L (3.5-5.1); Sodium 138 mmol/L (136-145)
[2023-04-18 13:30] LABS: Vancomycin, Trough 14.6 ug/mL
[2023-04-18] MEDS: prednisoLONE 15 MG/5 ML UDCUP PER TUBE SCH (18:19)
[2023-04-19 05:24] LABS: #Monocytes 0.5 thou/uL (0.11-0.59); #Neutrophils 12.2 thou/uL (1.40-6.50); %Basophils 0.2 % (0.0-1.0); %Lymphocytes 2.6 % (21.0-51.0); %Monocytes 4.1 % (0.0-10.0); %Neutrophils 92.3 % (42.0-75.0); Hematocrit 30.7 % (42.0-52.0); Hemoglobin 10.2 g/dL (14.0-18.0); Mean Corpuscular HGB CONC 33.2 g/dL (32.0-36.0); Mean Corpuscular Hemoglobin 31.9 pg (27.0-31.0); Mean Corpuscular Volume 95.9 fl (78.0-98.0); Mean Platelet Volume 10.6 fL (7.4-10.4); RBC Distribution Width 14.4 % (11.5-14.5); White Blood Cell (WBC) Count 13.3 10x3/uL (4.8-10.8)
[2023-04-19 05:26] LABS: Platelet Count 40 10x3/uL (130-400)
[2023-04-19 05:53] LABS: Anion Gap 9 mmol/L (10-20); BUN (Urea Nitrogen) 31 mg/dL (8.4-25.7); Calc. Creatinine Clearance 67 mL/min (70-130); Calcium 10.8 mg/dL (7.8-10.44); Carbon Dioxide 31 mmol/L (23-31); Chloride 101 mmol/L (98-107); Estimated GFR 101; Glucose 121 mg/dL (80-115); Sodium 137 mmol/L (136-145)
[2023-04-19] MEDS: prednisoLONE 15 MG/5 ML UDCUP PER TUBE SCH (09:11)
[2023-04-19 16:06] VITALS: TEMP 97.5
[2023-04-19 20:21] VITALS: BP 131/69
[2023-04-20 06:52] LABS: Reference Lab Name LABCORP
== END 2023-04-19 20:06 | disposition hospice, home (50) | DRG 872 ==
LOC: ERS 11:19 → MSONC 15:20
PROVIDERS: ADMIT Hospitalist; ATTEND Internal Medicine
PROC: 30233N1 Transfusion of Nonautologous Red Blood Cells into Peripheral Vein, Percutaneous Approach (ICD-10-PCS; principal; 2023-04-15)
PROC: 30233N1 Transfusion of Nonautologous Red Blood Cells into Peripheral Vein, Percutaneous Approach (ICD-10-PCS; 2023-04-16)
DX: A41.9 Sepsis, unspecified organism (principal); L03.221 Cellulitis of neck; E44.0 Moderate protein-calorie malnutrition; Z79.82 Long term (current) use of aspirin; Z79.899 Other long term (current) drug therapy; I10 Essential (primary) hypertension; Z51.5 Encounter for palliative care; D64.9 Anemia, unspecified; C76.0 Malignant neoplasm of head, face and neck
CPT/HCPCS: 36415; 36430; 70491; 71045; 80048; 80053; 80202; 81001; 82550; 83605; 83735; 85025; 85610; 85730; 86850; 86900; 86901; 87040; 87070; 87077; 87086; 87186; 87205; 94640; 96365; 96366; 96368; 97139; 99213; G0463; J0692; J1642; J1650; J1940; J2185; J2543; J2930; J3370; J3370-JW; J3490; J7050; J7510; J7620; P9016